=== PATIENT | male | born 1970 | race Caucasian/White ===

== ENCOUNTER 2017-06-01 10:18 | Inpatient (IN) | payer MEDICARE, MEDICAID ==
[2017-05-31 20:00] VITALS: BP 165/86
[~2017-06-01] VITALS: Ht 177.8 cm; Wt 76.0 kg
[~2017-06-01 10:18] MED LIST: ASPI-611 PO; ATOR-2 PO; GABA-338 PO; INSU100I9 SQ; LANTUS SQ; LOPE1TAB46 PO; METO100T14 PO; prednisolone OP
[2017-06-01] MEDS ORDERED: normal saline 1000ML IV soln IV ONE (10:35)
[2017-06-01 11:14] LABS: BASOPHILS % (AUTO) 0.6 % (0-1); EOSINOPHILS # (AUTO) 0.4 X10'3 (0-0.9); EOSINOPHILS % (AUTO) 4.7 % (0-6); HEMATOCRIT 31.6 % (42.0-52.0); HEMOGLOBIN 10.4 g/dl (14.0-17.9); LYMPHOCYTES # (AUTO) 0.5 X10'3 (1.1-4.8); LYMPHOCYTES % (AUTO) 6.6 % (21-51); MEAN CORPUSCULAR HEMOGLOBIN 32.9 PG (27.0-31.0); MEAN CORPUSCULAR VOLUME 99.8 FL (78-98); MEAN PLATELET VOLUME 8.9 FL (7.4-10.4); MONOCYTES # (AUTO) 0.4 X10'3 (0-0.9); MONOCYTES % (AUTO) 5.4 % (2-12); NEUTROPHILS # (AUTO) 6.1 X10'3 (1.8-7.7); NEUTROPHILS % (AUTO) 82.7 % (42-75); PLATELET COUNT 178 X10'3 (140-440); RED BLOOD COUNT 3.17 X10'6 (4.70-6.10); RED CELL DISTRIBUTION WIDTH 16.3 % (11.5-14.5); WHITE BLOOD COUNT 7.4 X10'3 (4.5-11.0)
[2017-06-01 11:25] LABS: INR 1.3 INR; PARTIAL THROMBOPLASTIN TIME 33 SECONDS (22-32); PROTHROMBIN TIME 13.5 SECONDS (9.0-12.0)
[2017-06-01 11:31] LABS: ALANINE AMINOTRANSFERASE 23 U/L (12-78); ALBUMIN 3.2 G/DL (3.4-5.0); ALBUMIN/GLOBULIN RATIO 0.9 (1.1-1.5); ALKALINE PHOSPHATASE 63 IU/L (46-116); ANION GAP 9 (8-16); ASPARTATE AMINO TRANSFERASE 15 U/L (10-37); BILIRUBIN,TOTAL 0.4 MG/DL (0.1-1.0); BLOOD UREA NITROGEN 32 MG/DL (7-18); BUN/CREATININE RATIO 6.8 (5.4-32.0); CALCIUM 8.2 MG/DL (8.5-10.1); CHLORIDE 100 MMOL/L (99-107); CREATININE 4.73 MG/DL (0.60-1.10); GLUCOSE 116 MG/DL (70-104); MAGNESIUM 2.1 MG/DL (1.5-2.4); POTASSIUM 4.3 MMOL/L (3.5-5.1); SODIUM 142 MMOL/L (135-145); TOTAL PROTEIN 6.6 G/DL (6.4-8.2); eGFR 13 ML/MIN
[2017-06-01 12:14] LABS: CLARITY,URINE CLOUDY (Clear); COLOR,URINE YELLOW (Yellow); GLUCOSE, URINE 100 mg/dl (Neg); KETONES,URINE NEGATIVE (Neg); LEUKOCYTE ESTERASE ,URINE MODERATE (Neg); NITRITES, URINE NEGATIVE (Neg); OCCULT BLOOD,URINE LARGE (Neg); PH,URINE 8.5 (4.8-8.0); PROTEIN,URINE >=300 mg/dl (Neg); UROBILINOGEN,URINE 0.2 E.U/dL (0.2-1.0)
[2017-06-01 12:15] LABS: UA COLLECTION TYPE FOLEY CATH
[2017-06-01 12:23] LABS: BACTERIA,URINE FEW /HPF (Neg); MUCUS STRANDS NONE SEEN /LPF (Neg); RBC,URINE TNTC /HPF (0-2); SQUAMOUS EPITHELIAL CELL,UR NONE SEEN /LPF (FEW); WBC CLUMPS,URINE MODERATE /HPF (NEGATIVE); WBC,URINE TNTC /HPF (0-4)
[2017-06-01] MEDS ORDERED: levoFLOXACIN-Levaquin 500mg/D5 100 ML IV ONE (13:10)
[2017-06-01] MEDS: gabapentin 300mg capsule PO SCH (15:07)
[2017-06-01 20:00] VITALS: BP 165/86
[2017-06-01] MEDS: heparin, porcine 5000 units/ml vial SQ SCH (20:01)
[2017-06-01] MEDS: lactobacillus rhamnosus 10,000 MMU CELLS/CAPSULE PO SCH (20:02)
[2017-06-01] MEDS: docusate sod 100mg capsule PO SCH (20:03)
[2017-06-01] MEDS: metoprolol tartrate 50mg tablet PO SCH (20:04)
[2017-06-01] MEDS: prednisoLONE acetate 1% ophth susp 5ml EACHEYE SCH (20:05)
[2017-06-01] MEDS: insulin glargine (Lantus) pen - multi-dose SQ SCH (21:00)
[2017-06-02] VITALS: BP 167/87
[2017-06-02 05:45] LABS: BASOPHILS % (AUTO) 0.6 % (0-1); EOSINOPHILS # (AUTO) 0.3 X10'3 (0-0.9); EOSINOPHILS % (AUTO) 5.1 % (0-6); HEMATOCRIT 27.1 % (42.0-52.0); HEMOGLOBIN 9.1 g/dl (14.0-17.9); LYMPHOCYTES # (AUTO) 0.9 X10'3 (1.1-4.8); LYMPHOCYTES % (AUTO) 15.4 % (21-51); MEAN CORPUSCULAR HEMOGLOBIN 32.9 PG (27.0-31.0); MEAN CORPUSCULAR HGB CONC 33.5 % (33.0-36.5); MEAN CORPUSCULAR VOLUME 98.3 FL (78-98); MEAN PLATELET VOLUME 8.7 FL (7.4-10.4); MONOCYTES # (AUTO) 0.6 X10'3 (0-0.9); MONOCYTES % (AUTO) 9.5 % (2-12); NEUTROPHILS # (AUTO) 4.3 X10'3 (1.8-7.7); NEUTROPHILS % (AUTO) 69.4 % (42-75); PLATELET COUNT 155 X10'3 (140-440); RED BLOOD COUNT 2.76 X10'6 (4.70-6.10); RED CELL DISTRIBUTION WIDTH 15.8 % (11.5-14.5); WHITE BLOOD COUNT 6.1 X10'3 (4.5-11.0)
[2017-06-02 06:00] LABS: INR 1.3 INR; PARTIAL THROMBOPLASTIN TIME 34 SECONDS (22-32)
[2017-06-02 06:04] LABS: ALANINE AMINOTRANSFERASE 21 U/L (12-78); ALBUMIN 2.9 G/DL (3.4-5.0); ALKALINE PHOSPHATASE 59 IU/L (46-116); ANION GAP 9 (8-16); ASPARTATE AMINO TRANSFERASE 14 U/L (10-37); BILIRUBIN,TOTAL 0.3 MG/DL (0.1-1.0); BLOOD UREA NITROGEN 38 MG/DL (7-18); CALCIUM 7.5 MG/DL (8.5-10.1); CHLORIDE 102 MMOL/L (99-107); CHOL/HDL RATIO 2.9 (0.00-4.99); CHOLESTEROL 88 MG/DL (0-200); CREATININE 5.44 MG/DL (0.60-1.10); GLUCOSE 155 MG/DL (70-104); HDL CHOLESTEROL 30 MG/DL (35-60); LDL CHOLESTEROL 46 MG/DL (50-100); POTASSIUM 4.8 MMOL/L (3.5-5.1); SODIUM 140 MMOL/L (135-145); TOTAL CARBON DIOXIDE 28.9 MMOL/L (24-32); TOTAL PROTEIN 5.9 G/DL (6.4-8.2); TRIGLYCERIDES 64 MG/DL (20-135); eGFR 11 ML/MIN
[2017-06-02 07:00] VITALS: BP 147/80
[2017-06-02] MEDS: aspirin 81mg tab.chew PO SCH (10:03)
[2017-06-02] MEDS: lactobacillus rhamnosus 10,000 MMU CELLS/CAPSULE PO SCH ×2 (10:03→22:30)
[2017-06-02] MEDS: metoprolol tartrate 50mg tablet PO SCH ×2 (10:06→22:30)
[2017-06-02] MEDS: gabapentin 300mg capsule PO SCH (10:07)
[2017-06-02] MEDS: atorvastatin 20mg tablet PO SCH (10:08)
[2017-06-02] MEDS: docusate sod 100mg capsule PO SCH ×2 (10:08→22:30)
[2017-06-02] MEDS: prednisoLONE acetate 1% ophth susp 5ml EACHEYE SCH ×3 (10:11→22:31)
[2017-06-02] MEDS: heparin, porcine 5000 units/ml vial SQ SCH ×2 (10:11→22:30)
[2017-06-02 10:15] VITALS: BP 143/84
[2017-06-02 14:01] LABS: TROPONIN I < 0.04 NG/ML (0.0-0.05)
[2017-06-02 15:45] VITALS: BP_SYST 127; BP_SYST 140; BP_SYST 157; BP_DIAS 77; BP_DIAS 91; BP_DIAS 93
[2017-06-02 19:20] VITALS: BP 164/91
[2017-06-02] MEDS: insulin glargine (Lantus) pen - multi-dose SQ SCH (22:29)
[2017-06-02 23:00] VITALS: BP 157/86
[2017-06-03 05:43] LABS: BASOPHILS # (AUTO) 0.1 X10'3 (0-0.2); EOSINOPHILS # (AUTO) 0.5 X10'3 (0-0.9); EOSINOPHILS % (AUTO) 6.4 % (0-6); HEMATOCRIT 28.9 % (42.0-52.0); HEMOGLOBIN 9.8 g/dl (14.0-17.9); MEAN CORPUSCULAR HEMOGLOBIN 33.3 PG (27.0-31.0); MEAN CORPUSCULAR HGB CONC 33.9 % (33.0-36.5); MEAN PLATELET VOLUME 9.2 FL (7.4-10.4); MONOCYTES # (AUTO) 0.7 X10'3 (0-0.9); MONOCYTES % (AUTO) 8.8 % (2-12); NEUTROPHILS # (AUTO) 5.2 X10'3 (1.8-7.7); NEUTROPHILS % (AUTO) 69.8 % (42-75); PLATELET COUNT 160 X10'3 (140-440); RED BLOOD COUNT 2.95 X10'6 (4.70-6.10); RED CELL DISTRIBUTION WIDTH 14.9 % (11.5-14.5); WHITE BLOOD COUNT 7.4 X10'3 (4.5-11.0)
[2017-06-03 05:58] LABS: INR 1.3 INR; PARTIAL THROMBOPLASTIN TIME 33 SECONDS (22-32)
[2017-06-03 06:28] LABS: ALANINE AMINOTRANSFERASE 18 U/L (12-78); ALBUMIN 3.2 G/DL (3.4-5.0); ALKALINE PHOSPHATASE 63 IU/L (46-116); ANION GAP 12 (8-16); ASPARTATE AMINO TRANSFERASE 14 U/L (10-37); BILIRUBIN,TOTAL 0.4 MG/DL (0.1-1.0); BLOOD UREA NITROGEN 46 MG/DL (7-18); BUN/CREATININE RATIO 6.8 (5.4-32.0); CALCIUM 7.7 MG/DL (8.5-10.1); CHLORIDE 103 MMOL/L (99-107); CREATININE 6.81 MG/DL (0.60-1.10); POTASSIUM 4.4 MMOL/L (3.5-5.1); SODIUM 141 MMOL/L (135-145); TOTAL CARBON DIOXIDE 25.6 MMOL/L (24-32); TOTAL PROTEIN 6.4 G/DL (6.4-8.2); eGFR 9 ML/MIN
[2017-06-03 06:31] LABS: GLUCOSE 31 MG/DL (70-104)
[2017-06-03] MEDS ORDERED: dextrose 50%-water 50ml dispensing syringe IV ONE (06:32)
[2017-06-03] MEDS ORDERED: glucagon, human recombinant 1mg kit SUBCUT PRN (06:40)
[2017-06-03] MEDS ORDERED: dextrose 50%-water 50ml dispensing syringe IV PRN ×2 (06:40)
[2017-06-03] MEDS ORDERED: dextrose ORAL solution 15 GM/59 ML bottle PO PRN ×2 (06:40)
[2017-06-03 08:00] VITALS: BP_SYST 129; BP_SYST 130; BP_SYST 140; BP_SYST 148; BP_DIAS 72; BP_DIAS 77; BP_DIAS 85; BP_DIAS 91
[2017-06-03] MEDS ORDERED: levoFLOXACIN-Levaquin 250mg/D5 50 ML IV SCH (08:00)
[2017-06-03] MEDS: prednisoLONE acetate 1% ophth susp 5ml EACHEYE SCH ×3 (08:54→21:00)
[2017-06-03] MEDS: aspirin 81mg tab.chew PO SCH (08:56)
[2017-06-03] MEDS: lactobacillus rhamnosus 10,000 MMU CELLS/CAPSULE PO SCH ×2 (08:56→22:42)
[2017-06-03] MEDS: docusate sod 100mg capsule PO SCH ×2 (08:57→22:41)
[2017-06-03] MEDS: atorvastatin 20mg tablet PO SCH (08:57)
[2017-06-03] MEDS: metoprolol tartrate 50mg tablet PO SCH ×2 (08:59→22:42)
[2017-06-03] MEDS: heparin, porcine 5000 units/ml vial SQ SCH ×2 (09:00→22:42)
[2017-06-03] MEDS: gabapentin 300mg capsule PO SCH (09:00)
[2017-06-03 12:00] VITALS: BP 154/76
[2017-06-03 19:30] VITALS: BP 151/86
[2017-06-03] MEDS: insulin glargine (Lantus) pen - multi-dose SQ SCH (22:40)
[2017-06-04] VITALS: BP 158/90
[2017-06-04 05:53] LABS: BASOPHILS % (AUTO) 0.5 % (0-1); EOSINOPHILS # (AUTO) 0.4 X10'3 (0-0.9); EOSINOPHILS % (AUTO) 5.2 % (0-6); HEMATOCRIT 26.8 % (42.0-52.0); HEMOGLOBIN 9.2 g/dl (14.0-17.9); INR 1.2 INR; LYMPHOCYTES # (AUTO) 0.8 X10'3 (1.1-4.8); LYMPHOCYTES % (AUTO) 9.1 % (21-51); MEAN CORPUSCULAR HEMOGLOBIN 32.8 PG (27.0-31.0); MEAN CORPUSCULAR HGB CONC 34.3 % (33.0-36.5); MEAN CORPUSCULAR VOLUME 95.7 FL (78-98); MEAN PLATELET VOLUME 8.9 FL (7.4-10.4); MONOCYTES # (AUTO) 0.6 X10'3 (0-0.9); MONOCYTES % (AUTO) 7.5 % (2-12); NEUTROPHILS # (AUTO) 6.4 X10'3 (1.8-7.7); NEUTROPHILS % (AUTO) 77.7 % (42-75); PARTIAL THROMBOPLASTIN TIME 37 SECONDS (22-32); PLATELET COUNT 156 X10'3 (140-440); PROTHROMBIN TIME 12.7 SECONDS (9.0-12.0); RED CELL DISTRIBUTION WIDTH 15.2 % (11.5-14.5); WHITE BLOOD COUNT 8.3 X10'3 (4.5-11.0)
[2017-06-04 06:07] LABS: ALANINE AMINOTRANSFERASE 18 U/L (12-78); ALBUMIN 2.7 G/DL (3.4-5.0); ALBUMIN/GLOBULIN RATIO 0.9 (1.1-1.5); ALKALINE PHOSPHATASE 58 IU/L (46-116); ANION GAP 13 (8-16); ASPARTATE AMINO TRANSFERASE 14 U/L (10-37); BILIRUBIN,TOTAL 0.3 MG/DL (0.1-1.0); BLOOD UREA NITROGEN 52 MG/DL (7-18); BUN/CREATININE RATIO 6.6 (5.4-32.0); CALCIUM 7.6 MG/DL (8.5-10.1); CHLORIDE 100 MMOL/L (99-107); CREATININE 7.84 MG/DL (0.60-1.10); GLUCOSE 71 MG/DL (70-104); POTASSIUM 4.9 MMOL/L (3.5-5.1); SODIUM 139 MMOL/L (135-145); TOTAL CARBON DIOXIDE 26.2 MMOL/L (24-32); TOTAL PROTEIN 5.8 G/DL (6.4-8.2); eGFR 7 ML/MIN
[2017-06-04 07:00] VITALS: BP 140/71
[2017-06-04] MEDS: atorvastatin 20mg tablet PO SCH (07:39)
[2017-06-04] MEDS: metoprolol tartrate 50mg tablet PO SCH (07:39)
[2017-06-04] MEDS: docusate sod 100mg capsule PO SCH (07:39)
[2017-06-04] MEDS: aspirin 81mg tab.chew PO SCH (07:39)
[2017-06-04] MEDS: lactobacillus rhamnosus 10,000 MMU CELLS/CAPSULE PO SCH (07:39)
[2017-06-04] MEDS: gabapentin 300mg capsule PO SCH (07:39)
[2017-06-04] MEDS: heparin, porcine 5000 units/ml vial SQ SCH (07:40)
[2017-06-04] MEDS: prednisoLONE acetate 1% ophth susp 5ml EACHEYE SCH (09:15)
[2017-06-04 11:20] VITALS: BP 148/87
== END 2017-06-04 12:00 | DRG 871 ==
LOC: ER 10:18 → ED HOLD 14:38 → EDBEDREQ 17:33 → MED 3N 18:12
PROVIDERS: ADMIT Internal Medicine Critical Care Medicine; ATTEND Internal Medicine Critical Care Medicine
DX: A41.9 Sepsis, unspecified organism (principal); N18.6 End stage renal disease; E10.22 Type 1 diabetes mellitus with diabetic chronic kidney disease; T68.XXXA Hypothermia, initial encounter; E10.42 Type 1 diabetes mellitus with diabetic polyneuropathy; I12.0 Hypertensive chronic kidney disease with stage 5 chronic kidney disease or end stage renal disease; N30.90 Cystitis, unspecified without hematuria; E10.319 Type 1 diabetes mellitus with unspecified diabetic retinopathy without macular edema; E10.39 Type 1 diabetes mellitus with other diabetic ophthalmic complication; E10.649 Type 1 diabetes mellitus with hypoglycemia without coma; E78.00 Pure hypercholesterolemia, unspecified; R21 Rash and other nonspecific skin eruption; H54.7 Unspecified visual loss; K21.9 Gastro-esophageal reflux disease without esophagitis; N31.9 Neuromuscular dysfunction of bladder, unspecified; B96.20 Unspecified Escherichia coli [E. coli] as the cause of diseases classified elsewhere; B95.2 Enterococcus as the cause of diseases classified elsewhere; Z59.0 Homelessness; Z99.2 Dependence on renal dialysis; Z79.899 Other long term (current) drug therapy; Z79.82 Long term (current) use of aspirin
CPT/HCPCS: 36415; 71045; 80053; 80061; 81001; 82948; 83036; 83605; 83735; 84145; 84484; 85025; 85610; 85730; 87040; 87070; 87077; 87088; 87186; 93005; 93306; 93880; 96361; 96365; 99285; A4344; A6209; A6212; A6213; C1758; J1644; J1815; J1956; J7030

== ENCOUNTER 2017-06-08 10:52 | Emergency (ER) | payer MEDICARE, MEDICAID ==
[~2017-06-08] VITALS: Ht 177.8 cm; Wt 78.0 kg
[2017-06-08 11:50] LABS: BASOPHILS % (AUTO) 0.8 % (0-1); EOSINOPHILS # (AUTO) 0.3 X10'3 (0-0.9); HEMATOCRIT 30.6 % (42.0-52.0); HEMOGLOBIN 10.1 g/dl (14.0-17.9); LYMPHOCYTES # (AUTO) 0.8 X10'3 (1.1-4.8); LYMPHOCYTES % (AUTO) 17.1 % (21-51); MEAN CORPUSCULAR HEMOGLOBIN 32.8 PG (27.0-31.0); MEAN CORPUSCULAR HGB CONC 33.1 % (33.0-36.5); MEAN CORPUSCULAR VOLUME 99.2 FL (78-98); MEAN PLATELET VOLUME 8.9 FL (7.4-10.4); MONOCYTES # (AUTO) 0.5 X10'3 (0-0.9); NEUTROPHILS % (AUTO) 65.1 % (42-75); PLATELET COUNT 153 X10'3 (140-440); RED BLOOD COUNT 3.08 X10'6 (4.70-6.10); RED CELL DISTRIBUTION WIDTH 15.7 % (11.5-14.5); WHITE BLOOD COUNT 4.7 X10'3 (4.5-11.0)
[2017-06-08 12:15] LABS: ALANINE AMINOTRANSFERASE 19 U/L (12-78); ALBUMIN 3.1 G/DL (3.4-5.0); ALBUMIN/GLOBULIN RATIO 0.9 (1.1-1.5); ALKALINE PHOSPHATASE 62 IU/L (46-116); ANION GAP 8 (8-16); ASPARTATE AMINO TRANSFERASE 14 U/L (10-37); BILIRUBIN,TOTAL 0.3 MG/DL (0.1-1.0); BLOOD UREA NITROGEN 40 MG/DL (7-18); BUN/CREATININE RATIO 6.8 (5.4-32.0); CALCIUM 8.3 MG/DL (8.5-10.1); CHLORIDE 101 MMOL/L (99-107); CREATININE 5.89 MG/DL (0.60-1.10); GLUCOSE 150 MG/DL (70-104); POTASSIUM 4.4 MMOL/L (3.5-5.1); SODIUM 142 MMOL/L (135-145); TOTAL CARBON DIOXIDE 33.1 MMOL/L (24-32); TOTAL PROTEIN 6.4 G/DL (6.4-8.2); eGFR 10 ML/MIN
[2017-06-08 13:12] VITALS: BP 166/89
== END 2017-06-08 13:57 | disposition home or self-care (01) ==
LOC: ER 10:53
DX: I12.0 Hypertensive chronic kidney disease with stage 5 chronic kidney disease or end stage renal disease (principal); N18.6 End stage renal disease; E10.65 Type 1 diabetes mellitus with hyperglycemia; D64.9 Anemia, unspecified; E10.22 Type 1 diabetes mellitus with diabetic chronic kidney disease; E10.42 Type 1 diabetes mellitus with diabetic polyneuropathy; E10.319 Type 1 diabetes mellitus with unspecified diabetic retinopathy without macular edema; E78.00 Pure hypercholesterolemia, unspecified; Z59.0 Homelessness; Z79.4 Long term (current) use of insulin; Z79.82 Long term (current) use of aspirin; Z99.2 Dependence on renal dialysis
CPT/HCPCS: 36415; 71045; 80053; 82948; 83605; 83735; 84145; 85025; 87040; 93005; 99285; A4353; A4315

== ENCOUNTER 2017-11-08 01:36 | Emergency (ER) | payer MEDICARE, MEDICAID ==
[~2017-11-08] VITALS: Ht 175.3 cm; Wt 70.0 kg
[2017-11-08 02:13] LABS: ALANINE AMINOTRANSFERASE 14 U/L (12-78); ALBUMIN 2.9 G/DL (3.4-5.0); ALKALINE PHOSPHATASE 54 IU/L (46-116); ANION GAP 2 (8-16); ASPARTATE AMINO TRANSFERASE 10 U/L (10-37); BILIRUBIN,TOTAL 0.3 MG/DL (0.1-1.0); CHLORIDE 102 MMOL/L (99-107); CREATININE 2.93 MG/DL (0.60-1.10); GLUCOSE 129 MG/DL (70-104); POTASSIUM 3.9 MMOL/L (3.5-5.1); SODIUM 140 MMOL/L (135-145); TOTAL CARBON DIOXIDE 36.1 MMOL/L (24-32); TOTAL PROTEIN 5.9 G/DL (6.4-8.2); eGFR 23 ML/MIN
[2017-11-08 02:15] LABS: BASOPHILS % (AUTO) 0.2 % (0-1); EOSINOPHILS # (AUTO) 0.2 X10'3 (0-0.9); EOSINOPHILS % (AUTO) 3.2 % (0-6); HEMATOCRIT 28.8 % (42.0-52.0); LYMPHOCYTES # (AUTO) 0.5 X10'3 (1.1-4.8); LYMPHOCYTES % (AUTO) 7.6 % (21-51); MEAN CORPUSCULAR HEMOGLOBIN 30.9 PG (27.0-31.0); MEAN CORPUSCULAR HGB CONC 31.3 % (33.0-36.5); MEAN CORPUSCULAR VOLUME 98.5 FL (78-98); MEAN PLATELET VOLUME 8.9 FL (7.4-10.4); MONOCYTES # (AUTO) 0.8 X10'3 (0-0.9); MONOCYTES % (AUTO) 10.9 % (2-12); NEUTROPHILS # (AUTO) 5.7 X10'3 (1.8-7.7); NEUTROPHILS % (AUTO) 78.1 % (42-75); PLATELET COUNT 151 X10'3 (140-440); RED BLOOD COUNT 2.92 X10'6 (4.70-6.10); RED CELL DISTRIBUTION WIDTH 14.5 % (11.5-14.5); WHITE BLOOD COUNT 7.2 X10'3 (4.5-11.0)
[2017-11-08 02:56] LABS: BLOOD UREA NITROGEN 19 MG/DL (7-18); BUN/CREATININE RATIO 6.5 (5.4-32.0)
== END 2017-11-08 04:35 ==
LOC: ER 01:37
DX: E11.649 Type 2 diabetes mellitus with hypoglycemia without coma (principal); E11.42 Type 2 diabetes mellitus with diabetic polyneuropathy; E11.319 Type 2 diabetes mellitus with unspecified diabetic retinopathy without macular edema; E78.00 Pure hypercholesterolemia, unspecified; I10 Essential (primary) hypertension; Z79.82 Long term (current) use of aspirin; Z79.4 Long term (current) use of insulin; Z79.899 Other long term (current) drug therapy
CPT/HCPCS: 36415; 80053; 82948; 85025; 99284

== ENCOUNTER 2018-06-25 20:54 | Emergency (ER) | payer MEDICARE, MEDICAID ==
[~2018-06-25] VITALS: Ht 177.8 cm; Wt 72.0 kg
--- NOTE | 2018-06-25 21:29 | NUR ---
accucheck now 111, pt has eaten a pb sandwich, chips, juice box, grahmcrackers. pt is polie and cooperative. vss.
[2018-06-25 21:44] LABS: BASOPHILS # (AUTO) 0.1 X10'3 (0-0.2); BASOPHILS % (AUTO) 0.7 % (0-1); EOSINOPHILS # (AUTO) 0.3 X10'3 (0-0.9); EOSINOPHILS % (AUTO) 3.2 % (0-6); HEMATOCRIT 35.5 % (42.0-52.0); HEMOGLOBIN 12.2 g/dl (14.0-17.9); LYMPHOCYTES # (AUTO) 0.5 X10'3 (1.1-4.8); MEAN CORPUSCULAR HEMOGLOBIN 33.7 PG (27.0-31.0); MEAN CORPUSCULAR HGB CONC 34.2 g/dL (33.0-36.5); MEAN CORPUSCULAR VOLUME 98.5 FL (78-98); MONOCYTES # (AUTO) 0.8 X10'3 (0-0.9); MONOCYTES % (AUTO) 7.2 % (2-12); NEUTROPHILS % (AUTO) 83.9 % (42-75); PLATELET COUNT 155 X10'3 (140-440); RED BLOOD COUNT 3.61 X10'6 (4.70-6.10); RED CELL DISTRIBUTION WIDTH 14.1 % (11.5-14.5); WHITE BLOOD COUNT 10.7 X10'3 (4.5-11.0)
[2018-06-25] MEDS ORDERED: azithromycin/NS 500mg/250ml 250 ML IV ONE (21:50)
[2018-06-25] MEDS ORDERED: CefTRIAXone 2gm/D5W 50ml 50 ML IV ONE (21:50)
[2018-06-25 21:57] LABS: ALANINE AMINOTRANSFERASE 22 U/L (12-78); ALBUMIN 3.6 G/DL (3.4-5.0); ALBUMIN/GLOBULIN RATIO 1.2 (1.1-1.5); ALKALINE PHOSPHATASE 67 IU/L (46-116); ANION GAP 6 (8-16); ASPARTATE AMINO TRANSFERASE 12 U/L (10-37); BILIRUBIN,TOTAL 0.3 MG/DL (0.1-1.0); BLOOD UREA NITROGEN 31 MG/DL (7-18); BUN/CREATININE RATIO 6.7 (5.4-32.0); CALCIUM 10.4 MG/DL (8.5-10.1); CHLORIDE 99 MMOL/L (99-107); CREATININE 4.62 MG/DL (0.60-1.10); GLUCOSE 115 MG/DL (70-104); POTASSIUM 5.2 MMOL/L (3.5-5.1); SODIUM 135 MMOL/L (135-145); TOTAL CARBON DIOXIDE 29.7 MMOL/L (24-32); TOTAL PROTEIN 6.7 G/DL (6.4-8.2); eGFR 14 ML/MIN
--- NOTE | 2018-06-25 22:12 | NUR ---
accucheck 146, pt to be dc's dr. rodriguez at bedside and talking with him about dc instructions.
[2018-06-25 23:26] VITALS: BP 136/60
--- NOTE | 2018-06-25 23:53 | NUR ---
PT SILL TRANSPORT WAIT. [facility] CALLED 1 HR AGO .
== END 2018-06-26 00:10 | disposition home or self-care (01) ==
LOC: ER 20:55
DX: E11.649 Type 2 diabetes mellitus with hypoglycemia without coma (principal); E11.42 Type 2 diabetes mellitus with diabetic polyneuropathy; E11.319 Type 2 diabetes mellitus with unspecified diabetic retinopathy without macular edema; E78.00 Pure hypercholesterolemia, unspecified; I12.0 Hypertensive chronic kidney disease with stage 5 chronic kidney disease or end stage renal disease; E11.22 Type 2 diabetes mellitus with diabetic chronic kidney disease; N18.6 End stage renal disease; Z99.2 Dependence on renal dialysis; Z79.82 Long term (current) use of aspirin; Z79.4 Long term (current) use of insulin; Z79.899 Other long term (current) drug therapy
CPT/HCPCS: 36415; 80053; 82948; 85025; 93005; 99284

== ENCOUNTER 2018-11-05 10:40 | Emergency (ER) | payer MEDICARE, MEDICAID ==
[~2018-11-05] VITALS: Ht 177.8 cm; Wt 68.2 kg
--- NOTE | 2018-11-05 11:02 | NUR ---
PT WEARING BRIEF, PLACED URINAL AND INSTRUCTED TO TO URINATE SO WE CAN SENT SAMPLE TO LAB.
--- NOTE | 2018-11-05 11:05 | NUR ---
PT BG 115 CEASARER NOTIFIED, GAVE PT 2 ORANGE JUICE BG IS FALLING AFTER EMS GAVE HALF AMP D50.
[2018-11-05 11:39] LABS: BASOPHILS % (AUTO) 0.6 % (0-1); EOSINOPHILS # (AUTO) 0.2 X10'3 (0-0.9); EOSINOPHILS % (AUTO) 2.9 % (0-6); HEMATOCRIT 27.1 % (42.0-52.0); HEMOGLOBIN 9.2 g/dl (14.0-17.9); LYMPHOCYTES # (AUTO) 0.4 X10'3 (1.1-4.8); MEAN CORPUSCULAR HEMOGLOBIN 34.6 PG (27.0-31.0); MEAN CORPUSCULAR HGB CONC 33.8 g/dL (33.0-36.5); MEAN CORPUSCULAR VOLUME 102.3 FL (78-98); MEAN PLATELET VOLUME 8.1 FL (7.4-10.4); MONOCYTES # (AUTO) 0.4 X10'3 (0-0.9); MONOCYTES % (AUTO) 6.1 % (2-12); NEUTROPHILS # (AUTO) 6.2 X10'3 (1.8-7.7); NEUTROPHILS % (AUTO) 84.4 % (42-75); PLATELET COUNT 112 X10'3 (140-440); RED BLOOD COUNT 2.65 X10'6 (4.70-6.10); RED CELL DISTRIBUTION WIDTH 13.8 % (11.5-14.5); WHITE BLOOD COUNT 7.4 X10'3 (4.5-11.0)
[2018-11-05 11:50] LABS: ALANINE AMINOTRANSFERASE 18 U/L (12-78); ALBUMIN 2.5 G/DL (3.4-5.0); ALBUMIN/GLOBULIN RATIO 1.2 (1.1-1.5); ALKALINE PHOSPHATASE 38 IU/L (46-116); ANION GAP 6 (8-16); ASPARTATE AMINO TRANSFERASE 8 U/L (10-37); BILIRUBIN,TOTAL 0.4 MG/DL (0.1-1.0); BLOOD UREA NITROGEN 17 MG/DL (7-18); BUN/CREATININE RATIO 6.4 (5.4-32.0); CALCIUM 6.3 MG/DL (8.5-10.1); CHLORIDE 110 MMOL/L (99-107); CREATININE 2.66 MG/DL (0.60-1.10); GLUCOSE 109 MG/DL (70-104); SODIUM 143 MMOL/L (135-145); TOTAL CARBON DIOXIDE 27.1 MMOL/L (24-32); TOTAL PROTEIN 4.6 G/DL (6.4-8.2); eGFR 26 ML/MIN
[2018-11-05 11:56] LABS: POTASSIUM 2.9 MMOL/L (3.5-5.1)
[2018-11-05] MEDS ORDERED: potassium Cl 20 mEq SR tablet PO STA (12:08)
[2018-11-05 12:18] VITALS: BP 98/59
[2018-11-05] MEDS ORDERED: CefTRIAXone 2gm/D5W 50ml 50 ML IV ONE (12:25)
[2018-11-05] MEDS ORDERED: CEPH-571 PO (12:27)
[2018-11-05 12:28] LABS: CLARITY,URINE TURBID (Clear); GLUCOSE, URINE NEGATIVE (Neg); KETONES,URINE NEGATIVE (Neg); LEUKOCYTE ESTERASE ,URINE LARGE (Neg); NITRITES, URINE POSITIVE (Neg); OCCULT BLOOD,URINE LARGE (Neg); PH,URINE 7.5 (4.8-8.0); PROTEIN,URINE >=300 mg/dl (Neg); UROBILINOGEN,URINE 0.2 E.U/dL (0.2-1.0)
[2018-11-05 12:38] LABS: COLOR,URINE BROWN (Yellow)
[2018-11-05 12:39] LABS: BACTERIA,URINE 4+ /HPF (Neg); RBC,URINE 20-50 /HPF (0-2); SQUAMOUS EPITHELIAL CELL,UR FEW /LPF (FEW); WBC,URINE TNTC /HPF (0-4)
--- NOTE | 2018-11-05 12:40 | NUR ---
GAVE PT THE REST OF HIS ORANGE JUICE AND APPLE SAUCE, MEDICATED PT WITH POTASSIUM ABX PER ORDERS, GAVE REPORT TO AMADOU
[2018-11-05 12:41] LABS: UA COLLECTION TYPE STRAIGHT CATH
--- NOTE | 2018-11-05 13:04 | NUR ---
[facility] CALLED FOR [employer] [facility], ETA 1400
--- NOTE | 2018-11-05 13:27 | NUR ---
report called to CAROLINA Haq at [facility]. waiting on transport still.
== END 2018-11-05 13:44 | disposition home or self-care (01) ==
LOC: ER 10:40
DX: N39.0 Urinary tract infection, site not specified (principal); E11.649 Type 2 diabetes mellitus with hypoglycemia without coma; E87.6 Hypokalemia; I12.0 Hypertensive chronic kidney disease with stage 5 chronic kidney disease or end stage renal disease; N18.6 End stage renal disease; E11.42 Type 2 diabetes mellitus with diabetic polyneuropathy; E78.00 Pure hypercholesterolemia, unspecified; E11.319 Type 2 diabetes mellitus with unspecified diabetic retinopathy without macular edema; Z79.4 Long term (current) use of insulin; Z98.41 Cataract extraction status, right eye; Z98.42 Cataract extraction status, left eye; Z99.2 Dependence on renal dialysis; Z79.82 Long term (current) use of aspirin; Z79.899 Other long term (current) drug therapy; Z79.2 Long term (current) use of antibiotics
CPT/HCPCS: 36415; 80053; 81001; 82948; 85025; 87088; 96365; 99284; J0696; P9612; 87077

== ENCOUNTER 2019-02-28 11:50 | Emergency (ER) | payer MEDICARE, MEDICAID ==
[~2019-02-28] VITALS: Ht 177.8 cm; Wt 63.6 kg
[~2019-02-28 11:50] MED LIST changes: +CEPH-571 PO
[2019-02-28 15:33] VITALS: BP 125/61
== END 2019-02-28 15:34 | disposition home or self-care (01) ==
LOC: ER 11:50
DX: K59.00 Constipation, unspecified (principal); N18.6 End stage renal disease; H54.7 Unspecified visual loss; E11.42 Type 2 diabetes mellitus with diabetic polyneuropathy; E11.319 Type 2 diabetes mellitus with unspecified diabetic retinopathy without macular edema; E78.00 Pure hypercholesterolemia, unspecified; I12.0 Hypertensive chronic kidney disease with stage 5 chronic kidney disease or end stage renal disease; E11.22 Type 2 diabetes mellitus with diabetic chronic kidney disease; Z99.2 Dependence on renal dialysis; Z98.890 Other specified postprocedural states; Z79.82 Long term (current) use of aspirin; Z79.4 Long term (current) use of insulin; Z79.899 Other long term (current) drug therapy
CPT/HCPCS: 99283

== ENCOUNTER 2020-02-13 01:41 | Emergency (ER) | payer MEDICARE, MEDICAID ==
[~2020-02-13] VITALS: Ht 177.8 cm; Wt 72.7 kg
[2020-02-13 02:54] LABS: BASOPHILS % (AUTO) 0.8 % (0-1); EOSINOPHILS % (AUTO) 1.7 % (0-6); HEMATOCRIT 32.3 % (42.0-52.0); HEMOGLOBIN 10.7 g/dl (14.0-17.9); LYMPHOCYTES # (AUTO) 0.3 X10'3 (1.1-4.8); LYMPHOCYTES % (AUTO) 17.9 % (21-51); MEAN CORPUSCULAR HEMOGLOBIN 31.8 PG (27.0-31.0); MEAN CORPUSCULAR HGB CONC 33.1 g/dL (33.0-36.5); MEAN CORPUSCULAR VOLUME 96.1 FL (78-98); MEAN PLATELET VOLUME 8.4 FL (7.4-10.4); MONOCYTES # (AUTO) 0.3 X10'3 (0-0.9); MONOCYTES % (AUTO) 19.1 % (2-12); NEUTROPHILS % (AUTO) 60.5 % (42-75); PLATELET COUNT 79 X10'3 (140-440); RED BLOOD COUNT 3.37 X10'6 (4.70-6.10); WHITE BLOOD COUNT 1.6 X10'3 (4.5-11.0)
[2020-02-13 03:00] VITALS: BP 143/72
[2020-02-13 03:07] LABS: D-DIMER 0.76 MG/L FEU (0-0.50); PARTIAL THROMBOPLASTIN TIME 40 SECONDS (22-32)
[2020-02-13 03:10] LABS: ALANINE AMINOTRANSFERASE 11 U/L (12-78); ALBUMIN 3.5 G/DL (3.4-5.0); ALBUMIN/GLOBULIN RATIO 1.1 (1.1-1.5); ALKALINE PHOSPHATASE 42 IU/L (46-116); ANION GAP 9 (8-16); ASPARTATE AMINO TRANSFERASE 15 U/L (10-37); BILIRUBIN,TOTAL 0.4 MG/DL (0.1-1.0); BLOOD UREA NITROGEN 16 MG/DL (7-18); CALCIUM 8.2 MG/DL (8.5-10.1); CHLORIDE 102 MMOL/L (99-107); CREATININE 4.04 MG/DL (0.60-1.10); GLUCOSE 142 MG/DL (70-104); POTASSIUM 3.9 MMOL/L (3.5-5.1); SODIUM 141 MMOL/L (135-145); TOTAL CARBON DIOXIDE 30.2 MMOL/L (24-32); TOTAL PROTEIN 6.6 G/DL (6.4-8.2); eGFR 16 ML/MIN
[2020-02-13 03:43] LABS: C-REACTIVE PROTEIN 3.53 MG/DL (0.0-0.5); LACTATE DEHYDROGENASE 177 U/L (85-227); MAGNESIUM 2.2 MG/DL (1.5-2.4)
[2020-02-13 03:44] LABS: FERRITIN 1848 NG/ML (26-388)
[2020-02-13 04:23] LABS: PLATELET ESTIMATE DECREASED; TOTAL CELLS COUNTED 100
[2020-02-13 04:24] LABS: MICROCYTOSIS 1+
== END 2020-02-13 06:21 | disposition home or self-care (01) ==
LOC: ER 01:41
DX: U07.1 COVID-19 (principal); N18.9 Chronic kidney disease, unspecified; D72.829 Elevated white blood cell count, unspecified; E78.00 Pure hypercholesterolemia, unspecified; I12.0 Hypertensive chronic kidney disease with stage 5 chronic kidney disease or end stage renal disease; E11.22 Type 2 diabetes mellitus with diabetic chronic kidney disease; E11.319 Type 2 diabetes mellitus with unspecified diabetic retinopathy without macular edema; E11.42 Type 2 diabetes mellitus with diabetic polyneuropathy; F17.210 Nicotine dependence, cigarettes, uncomplicated; Z98.890 Other specified postprocedural states; Z79.82 Long term (current) use of aspirin; Z79.4 Long term (current) use of insulin; Z79.2 Long term (current) use of antibiotics; Z79.899 Other long term (current) drug therapy
CPT/HCPCS: 36415; 71045; 80053; 82728; 83615; 83735; 84145; 85007; 85025; 85379; 85384; 85610; 85730; 86140; 99284

== ENCOUNTER 2021-06-13 18:05 | Emergency (ER) | payer MEDICARE, MEDICAID ==
[~2021-06-13] VITALS: Ht 177.8 cm; Wt 80.9 kg
[~2021-06-13 18:05] MED LIST changes: +ALBU2.5V12 NEB; +ALLO100T PO; +AMLO10TA13 PO; -ATOR-2 PO; +BEPO10DR EACHEYE; +BRIM5DRO2 LEFTEYE; +CARV25TA2 PO; -CEPH-571 PO; +CHOL10005 PO; +CLON-473 PO; +FAMO10TA41 PO; +FLUO10CA28 PO; +FURO80TA3 PO; +HYDR-4069 PO; +HYDR-4383 PO; -INSU100I9 SQ; +INSU100V13 SQ; +KIONEX PO; +LACT1CAP75 PO; +LEVO75TA7 PO; -LOPE1TAB46 PO; +LOSA50TA64 PO; -METO100T14 PO; +PEG15DRO14 EACHEYE; +PRAV20TA4 PO; +QUE9P PO; +SENN1TAB61 PO; +THIA100T66 PO; +VIT1TABL50 PO; -prednisolone OP
[2021-06-13 18:39] LABS: BASOPHILS # (AUTO) 0.1 X10'3 (0-0.2); BASOPHILS % (AUTO) 1.2 % (0-1); EOSINOPHILS # (AUTO) 0.6 X10'3 (0-0.9); EOSINOPHILS % (AUTO) 4.9 % (0-6); HEMATOCRIT 31.8 % (42.0-52.0); HEMOGLOBIN 10.5 g/dl (14.0-17.9); LYMPHOCYTES # (AUTO) 0.9 X10'3 (1.1-4.8); LYMPHOCYTES % (AUTO) 7.2 % (21-51); MEAN CORPUSCULAR HEMOGLOBIN 32.3 PG (27.0-31.0); MEAN CORPUSCULAR HGB CONC 33.1 g/dL (33.0-36.5); MEAN CORPUSCULAR VOLUME 97.7 FL (78-98); MEAN PLATELET VOLUME 8.1 FL (7.4-10.4); MONOCYTES # (AUTO) 0.8 X10'3 (0-0.9); MONOCYTES % (AUTO) 6.2 % (2-12); NEUTROPHILS # (AUTO) 9.8 X10'3 (1.8-7.7); NEUTROPHILS % (AUTO) 80.5 % (42-75); PLATELET COUNT 214 X10'3 (140-440); RED BLOOD COUNT 3.26 X10'6 (4.70-6.10); RED CELL DISTRIBUTION WIDTH 14.6 % (11.5-14.5); WHITE BLOOD COUNT 12.2 X10'3 (4.5-11.0)
[2021-06-13 18:51] LABS: ALANINE AMINOTRANSFERASE 8 U/L (12-78); ALBUMIN 3.4 G/DL (3.4-5.0); ALKALINE PHOSPHATASE 65 IU/L (46-116); ANION GAP 14 (8-16); ASPARTATE AMINO TRANSFERASE 8 U/L (10-37); BILIRUBIN,TOTAL 0.3 MG/DL (0.1-1.0); BLOOD UREA NITROGEN 59 MG/DL (7-18); BUN/CREATININE RATIO 8.2 (5.4-32.0); CALCIUM 7.8 MG/DL (8.5-10.1); CHLORIDE 106 MMOL/L (99-107); CREATININE 7.16 MG/DL (0.60-1.10); GLUCOSE 121 MG/DL (70-104); POTASSIUM 4.6 MMOL/L (3.5-5.1); SODIUM 141 MMOL/L (135-145); TOTAL CARBON DIOXIDE 21.4 MMOL/L (24-32); TOTAL PROTEIN 6.7 G/DL (6.4-8.2); eGFR 8 ML/MIN
--- NOTE | 2021-06-13 19:07 | NUR ---
pt arrived to the ed via ems with low blood sugar levels; per ems the pt has ALOC with blood glucose; the pt was treated pre and post arrival; POC test now at 192 per CAROLINA Ayala.
[2021-06-13] MEDS ORDERED: CefTRIAXone 2gm/NS 100ml IVPB 100 ML IV ONE (19:50)
--- NOTE | 2021-06-13 19:56 | NUR ---
straight cath for 30 ml thick foul odor caramel color urine; spec sent to lab
[2021-06-13 20:22] LABS: UA COLLECTION TYPE NON-SPECIFIED
[2021-06-13 20:23] LABS: COLOR,URINE Brown (Yellow)
--- NOTE | 2021-06-13 20:25 | NUR ---
pt medicated per mar
[2021-06-13 20:32] LABS: BACTERIA,URINE 3+ /HPF (Neg); MUCUS STRANDS FEW /LPF (Neg); RBC,URINE 20-50 /HPF (0-2); SQUAMOUS EPITHELIAL CELL,UR NONE SEEN /LPF (FEW); WBC,URINE TNTC /HPF (0-4)
[2021-06-13 20:41] LABS: CLARITY,URINE TURBID (Clear)
[2021-06-13] MEDS ORDERED: CEPH250T PO (20:41)
--- NOTE | 2021-06-13 21:00 | NUR ---
pt d/c to return to care facility
--- NOTE | 2021-06-13 21:47 | NUR ---
Report called to Danielle Tompkins at [facility]
[2021-06-13 23:11] VITALS: BP 132/74
== END 2021-06-13 22:00 | disposition home or self-care (01) ==
LOC: ER 18:05
DX: N39.0 Urinary tract infection, site not specified (principal); E11.649 Type 2 diabetes mellitus with hypoglycemia without coma; R53.1 Weakness; I12.0 Hypertensive chronic kidney disease with stage 5 chronic kidney disease or end stage renal disease; E11.22 Type 2 diabetes mellitus with diabetic chronic kidney disease; N18.6 End stage renal disease; E11.42 Type 2 diabetes mellitus with diabetic polyneuropathy; E78.00 Pure hypercholesterolemia, unspecified; Z99.2 Dependence on renal dialysis; Z98.890 Other specified postprocedural states; Z79.82 Long term (current) use of aspirin; Z79.2 Long term (current) use of antibiotics; Z79.4 Long term (current) use of insulin; Z79.899 Other long term (current) drug therapy
CPT/HCPCS: 36415; 71045; 80053; 81001; 82948; 85025; 87088; 96374; 99284; J0696; 87077; 87186